=== PATIENT | male | born 1965 | race Caucasian/White ===

== ENCOUNTER 2017-05-21 21:23 | Emergency (ER) | payer OTHER, MEDICAID ==
[2017-05-21 21:35] VITALS: TEMP 98.1
--- NOTE | 2017-05-21 21:36 | EDPHY ---
H & P Time Seen by Provider: 05/21/17 21:23 HPI/ROS: CHIEF COMPLAINT: Mental health hold HISTORY OF PRESENT ILLNESS: Patient has schizoaffective disorder and was making suicidal statements at the [facility] and so was placed on a 72 hour hold and transferred here for evaluation. Patient denies any medical complaints but further history and review of systems is limited because the patient is not cooperative with the interview and just responds "bullshit" as a response to almost all my questions. The mental health hold describes that he told them he would hang himself or throw himself under a train. Patient refuses to confirm or deny either statement. Review of systems unable because of above. PAST MEDICAL HISTORY: Schizoaffective disorder Social history: Patient will not answer General Appearance: Alert, transfers off poolroom table attendant gurney, moving all extremities, not cooperative Eyes: No scleral icterus. ENT, Mouth: Normal mucous membranes. Respiratory: Normal respiratory effort, breath sounds equal, lungs are clear to auscultation. Cardiovascular: Regular rate and rhythm. Gastrointestinal: Abdomen is soft and non tender. Neurological: Alert, fluent speech, but not cooperative. Face symmetric, normal movement and sensation in all extremities. Skin: No lacerations Musculoskeletal: No deformity or extremity tenderness. Psychiatric: Suicidal statements earlier, not cooperative now. Emergency Department course/MDM: Plan for vital signs, labs and urine tox, psychiatric placement. Signed out to Quin at 2300 with inpatient placement pending. (Avi Dale) Constitutional: Initial Vital Signs Temperature (C) 36.7 C 05/21/17 21:33 Heart Rate 56 L 05/21/17 21:33 Respiratory Rate 18 05/21/17 21:33 Blood Pressure 123/71 H 05/21/17 21:33 O2 Sat (%) 97 05/21/17 21:33 O2 Delivery Mode Room Air Allergies/Adverse Reactions: shellfish derived Allergy (Verified 05/21/17 21:40) Sulfa (Sulfonamide Antibiotics) Allergy (Verified 07/01/11 00:52) antihistamine Allergy (Uncoded 07/01/11 00:54) Home Medications: Medication Instructions Recorded Dicyclomine 20 mg PO BID 05/21/17 Escitalopram Oxalate 10 mg PO DAILY 05/21/17 OLANZapine 20 mg PO HS 05/21/17 OXcarbazepine 600 mg PO BID 05/21/17 Omeprazole 20 mg PO 05/21/17 busPIRone 30 mg PO BID 05/21/17 Medical Decision Making ED Course/Re-evaluation: Patient has been stable. He has been evaluated and they are looking for placement. He did finally give us a urine sample and this is reviewed by the toxicology showing marijuana. Patient has been given his usual daily medications in the department. (Umesh Pierce) Differential Diagnosis: Differential diagnosis considered for depression including functional and major depression, situational depression, medication side effect, drugs and alcohol abuse. (Avi Dale) 7:10 a.m.- Patient has been stable throughout my shift. We are awaiting a UA to completed medical evaluation. He is medically clear. He will be awaiting placement. I have discussed the case with Dr. Pierce the oncoming physician. (Yuni Tsai) Other Provider: The patient was turned over to me at 3:30 p.m. pending psychiatric placement. He is currently on an M1 psychiatric hold. He has been medically cleared prior to my arrival. Update at 6:50 p.m.: Patient was seen by [facility]. The patient is now álvaro for safety and is no longer suicidal. They informed me they have a long-standing relationship with this patient and he does have chronic intermittent bouts of suicidality without a specific plan. The patient does suffer from fairly significant depression. At this point time he would like to follow up with his regular prescriber at [facility]. The case was discussed with the on-call psychiatrist at [facility], Dr. Ricks, who recommends the 72 hour hold the vacated. (Hardeep Marcelo) Care Turn Over: Dr. Marcelo at 3:15 p.m. (Umesh Pierce) - Data Points Laboratory Results: Laboratory Results 05/21/17 21:58 05/21/17 21:58 05/21/17 07:00 Urine Opiates Screen NEGATIVE (NEGATIVE) Urine Barbiturates NEGATIVE (NEGATIVE) Ur Phencyclidine Scrn NEGATIVE (NEGATIVE) Ur Amphetamine Screen NEGATIVE (NEGATIVE) U Benzodiazepines Scrn NEGATIVE (NEGATIVE) Urine Cocaine Screen NEGATIVE (NEGATIVE) U Marijuana (THC) Screen NON-NEGATIVE H (NEGATIVE) Medications Given: Discontinued Medications Buspirone HCl (Buspar) 15 mg PO EDNOW ONE Stop: 05/22/17 09:29 Last Admin: 05/22/17 09:52 Dose: 15 mg Clonazepam (Klonopin) 0.5 mg PO EDNOW ONE Stop: 05/22/17 09:26 Last Admin: 05/22/17 09:52 Dose: 0.5 mg Escitalopram Oxalate (Lexapro) 10 mg PO EDNOW ONE Stop: 05/22/17 09:26 Last Admin: 05/22/17 09:52 Dose: 10 mg Nicotine (Nicoderm Cq) 21 mg TD EDNOW ONE Stop: 05/21/17 22:10 Last Admin: 05/21/17 22:12 Dose: 21 mg Olanzapine (Olanzapine) 5 mg PO EDNOW ONE Stop: 05/22/17 09:26 Last Admin: 05/22/17 09:52 Dose: 5 mg Oxcarbazepine (Trileptal) 900 mg PO EDNOW ONE Stop: 05/22/17 09:28 Last Admin: 05/22/17 09:52 Dose: 900 mg Departure - Departure Disposition: Home, Routine, Self-Care Clinical Impression: Schizoaffective disorder Qualifiers: Schizoaffective disorder type: depressive Qualified Code(s): F25.1 - Schizoaffective disorder, depressive type Condition: Good Instructions: Depression (ED) Additional Instructions: 1. Please follow-up with the mental health resources provided in the ED today. 2. [facility] does operate a 24/7 psychiatric crisis unit located at [address] [place] [address]. The telephone number for the 24 hour crisis center is [phone]. 3. Please return to the ED if you are feeling suicidal, having thoughts of harming yourself/others or should you feel unsafe or have worsening symptoms. Referrals: [facility],. [Clinic] - As per Instructions
[2017-05-21 22:07] LABS: % IMMATURE GRANULYOCYTES 0.2 % (0.0-1.1); ABSOLUTE IMMATURE GRANULOCYTES 0.01 10^3/uL (0.00-0.10); ADD DIFF? NO; ADD MORPH? NO; ADD SCAN? NO; ATYPICAL LYMPHOCYTE FLAG 40 (0-99); FRAGMENT RBC FLAG 0 (0-99); HEMATOCRIT 39.3 % (40.0-51.0); HEMOGLOBIN 13.8 g/dL (13.7-17.5); LEFT SHIFT FLG 0 (0-99); LIPEMIA HEMOLYSIS FLAG 90 (0-99); MEAN CELL HEMOGLOBIN 33.2 pg (27.9-34.1); MEAN CELL HEMOGLOBIN CONCENTR. 35.1 g/dL (32.4-36.7); MEAN CELL VOLUME 94.5 fL (81.5-99.8); PLATELET CLUMPS FLAG 0 (0-99); PLATELET COUNT 247 10^3/uL (150-400); RED BLOOD CELL COUNT 4.16 10^6/uL (4.40-6.38); RED CELL DISTRIBUTION WIDTH 12.4 % (11.5-15.2)
[2017-05-21] MEDS ORDERED: NICOTINE 21 MG/24 HR PATCH TD ONE (22:09)
[2017-05-21 22:26] LABS: ANION GAP 9 mEq/L (8-16); CALCIUM 8.9 mg/dL (8.5-10.4); CARBON DIOXIDE 23 mEq/l (22-31); CHLORIDE 109 mEq/L (97-110); CREATININE 0.9 mg/dL (0.7-1.3); ETHANOL SERUM < 10 mg/dL (0-10); GLOMERULAR FILTRATION RATE > 60; GLUCOSE 101 mg/dL (70-100); POTASSIUM 3.9 mEq/L (3.5-5.2); SALICYLATE < 1.0 mg/dL (2.0-20.0); SODIUM 141 mEq/L (134-144)
[2017-05-22] MEDS ORDERED: OLANZapine 5 MG TAB PO ONE (09:25)
[2017-05-22] MEDS ORDERED: ESCITALOPRAM OXALATE 10 MG TAB PO ONE (09:25)
[2017-05-22] MEDS ORDERED: clonazePAM 0.5 MG TAB PO ONE (09:25)
[2017-05-22] MEDS ORDERED: OXcarbazepine 300 MG TAB PO ONE (09:27)
[2017-05-22] MEDS ORDERED: busPIRone 15 MG TAB PO ONE (09:28)
[2017-05-22 15:47] VITALS: RESP 16
[2017-05-22 19:11] VITALS: BP 118/76; PULSE 59; O2SAT 95
== END 2017-05-22 19:14 | disposition home or self-care (01) ==
LOC: EDUNIT# → MERGE 21:23
DX: F25.1 Schizoaffective disorder, depressive type (principal)
CPT/HCPCS: 80305; G0480

== ENCOUNTER 2017-12-17 14:42 | Emergency (ER) | payer MEDICAID, OTHER ==
[2017-12-17 14:51] VITALS: RESP 18; TEMP 98.2; O2SAT 96
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
[2017-12-17 15:24] LABS: PLATELET COUNT 275 10^3/uL (150-400)
[2017-12-17 20:03] VITALS: BP 110/87; PULSE 68
[2017-12-17] MEDS ORDERED: OLANZapine DISINTEGR 5 MG TAB PO ONE (20:30)
== END 2017-12-17 21:57 ==
LOC: EEVIPCON 14:42
DX: S81.801A Unspecified open wound, right lower leg, initial encounter (principal); F20.3 Undifferentiated schizophrenia; F17.200 Nicotine dependence, unspecified, uncomplicated; W33.0 Accidental rifle, shotgun and larger firearm discharge
CPT/HCPCS: 80305; G0480

== ENCOUNTER 2017-12-26 04:21 | Emergency (ER) | payer OTHER ==
[2017-12-26] MEDS ORDERED: TDAP ADULT 0.5 ML INJ (BOOSTRIX) IM ONE (04:30)
[2017-12-26 04:48] VITALS: RESP 18; TEMP 97.9
[2017-12-26] MEDS ORDERED: OLANZapine DISINTEGR 10 MG TAB PO ONE (04:57)
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
[2017-12-26 05:18] VITALS: BP 137/78; PULSE 82; O2SAT 96
== END 2017-12-26 05:16 | disposition home or self-care (01) ==
PROC: 0HQ1XZZ Repair Face Skin, External Approach (ICD-10-PCS; principal; 2017-12-26)
DX: S01.81XA Laceration without foreign body of other part of head, initial encounter (principal); F17.200 Nicotine dependence, unspecified, uncomplicated; Z23 Encounter for immunization; W22.8XXA Striking against or struck by other objects, initial encounter